=== PATIENT | male | born 1980 | race American Indian/Alaskan Native ===

== ENCOUNTER 2016-09-15 02:07 | Emergency (ER) | payer SELFPAY ==
[2016-09-15 05:08] LABS: Basophils % (Auto) 0.7 % (0.0-1.8); Eosinophils % (Auto) 2.5 % (0.0-4.3); Hematocrit 50.8 % (35.5-45.6); Hemoglobin 16.8 gm/dl (11.8-15.2); Mean Corpuscular HGB Conc 33 % (32-34); Mean Corpuscular Hemoglobin 31 pg (28-32); Mean Corpuscular Volume 93 fl (84-94); Platelet Count 365 K/mm3 (140-440); Red Blood Count 5.48 M/mm3 (3.65-5.03); Red Cell Distribution Width 14.8 % (13.2-15.2); White Blood Count 13.9 K/mm3 (4.5-11.0)
[2016-09-15 05:26] LABS: Anion Gap 19 mmol/L; BUN/Creatinine Ratio 16.36; Blood Urea Nitrogen 18 mg/dL (9-20); Calcium 9.2 mg/dL (8.4-10.2); Carbon Dioxide 23 mmol/L (22-30); Chloride 103.5 mmol/L (98-107); Glucose 90 mg/dL (75-100); Lipase 26 units/L (13-60); Sodium 141 mmol/L (137-145)
[2016-09-15 05:44] LABS: Bilirubin,Urine NEG (Negative); Blood,Urine NEG (Negative); Ketones,Urine 20 mg/dL (Negative); Leukocyte Esterase,Urine NEG (Negative); Mucus,Urine FEW /HPF; Nitrite,Urine NEG (Negative); Protein,Urine <15 mg/dL mg/dL (Negative); Urobilinogen,Urine < 2.0 mg/dL (<2.0)
[2016-09-15] MEDS ORDERED: NORCO 7.5/325 PO ONE (14:19)
[2016-09-15] MEDS ORDERED: XYLOCAINE 1% MPF 5 mL INFILTRATI ONE (14:20)
--- NOTE | 2016-09-15 14:26 | XRay Report ---
CHEST 2 VIEWS INDICATION: Cough. COMPARISON: None similar at this institution. FINDINGS: PA and lateral chest radiographs demonstrate normal cardiomediastinal silhouette. Clear lungs. Intact bones. CONCLUSION: No acute disease in the chest. Thank you for the opportunity to participate in this patient's care.
--- NOTE | 2016-09-15 16:29 | Emergency Department Report ---
Abscess Boil HPI - HPI Chief Complaint: Skin/Abscess/Foreign Body Stated Complaint: L EAR INFECTION/BUMP ON R EYE/ABSCESS Duration: 1 Week Location: Head (left earlobe and right eyebrow) Severity: Mild History: Yes Pain, Yes Purulent Drainage, No Fever, No Numbness, No Foreign Body , No Previous History HPI: 35 year old male presents to ED with left earlobe abscess and right eyebrow abscess x1week. Patient is stable, neurologically intact and in no acute distress. patient also states that he had 1 episode of hemotypsis 2 weeks ago but is unsure if it was from his chest or mouth. patient states he also has tooth pain for 2-3 weeks. Home Medications: Previous Rx's Medication Instructions Recorded Last Taken Type Cephalexin [Keflex] 500 mg PO Q12HR #14 cap 09/15/16 Unknown Rx Allergies/Adverse Reactions: Allergies Allergy/AdvReac Type Severity Reaction Status Date / Time shellfish derived Allergy Swelling Verified 09/15/16 03:41 ED Review of Systems ROS: Stated complaint: L EAR INFECTION/BUMP ON R EYE/ABSCESS Other details as noted in HPI Constitutional: denies: chills, fever Eyes: denies: eye pain, eye discharge, vision change ENT: ear pain, dental pain. denies: throat pain Respiratory: cough. denies: shortness of breath, SOB with exertion, SOB at rest , wheezing Cardiovascular: denies: chest pain, palpitations, dyspnea on exertion, orthopnea , edema, syncope Endocrine: no symptoms reported Gastrointestinal: denies: abdominal pain, nausea, diarrhea Genitourinary: denies: urgency, dysuria Musculoskeletal: denies: back pain, joint swelling, arthralgia Skin: denies: rash, lesions Neurological: denies: headache, weakness, paresthesias Psychiatric: denies: anxiety, depression Hematological/Lymphatic: denies: easy bleeding, easy bruising ED Past Medical Hx - Past Medical History Previous Medical History?: No - Surgical History Past Surgical History?: No - Social History Smoking Status: Current Every Day Smoker Substance Use Type: Alcohol, Cocaine, Marijuana - Medications Home Medications: Home Medications Medication Instructions Recorded Confirmed Last Taken Type Cephalexin [Keflex] 500 mg PO Q12HR #14 cap 09/15/16 Unknown Rx ED Abscess Boil Physical Exam - Exam General: Vital signs noted. No distress. Alert and acting appropriately. Size: 2 cm Exam: Yes Tenderness, Yes Fluctuance, Yes Normal Neurologic Exam, Yes Normal Circulation, No Surrounding Cellulites/Erythema, No Lymphangitis, No Crepitation , No Heart Murmur Exam: neurologically intact. alert and oriented x3. cardiovascular: regular rate and rhythm. Respiratory: normal sounds bilaterally. ENT: normal clear TM' s. normal throat exam. normal mouth/teeth exam, no abscess present. I & D Note - I & D Note I & D Note: 2 I&D procedures perfomed. One on left earlobe, one on right eyebrow abscess. Both areas prepped with betadine and injected with 5cc's of lidocaine for numbing. Moderate amount of purulent drainage obtained from both areas and patient tolerated well. bleeding well controlled from both areas/ abscesses. ED Course Vital Signs 09/15/16 03:41 Temperature 98.3 F Pulse Rate 78 Respiratory 20 Rate Blood Pressure 139/85 O2 Sat by Pulse 99 Oximetry Critical care attestation.: If time is entered above; I have spent that time in minutes in the direct care of this critically ill patient, excluding procedure time. ED Medical Decision Making - Lab Data Result diagrams: 09/15/16 04:30 09/15/16 04:30 Laboratory Results - last 24 hr 09/15/16 09/15/16 09/15/16 04:30 04:30 04:30 WBC 13.9 H RBC 5.48 H Hgb 16.8 H Hct 50.8 H MCV 93 MCH 31 MCHC 33 RDW 14.8 Plt Count 365 Lymph % (Auto) 20.8 [place] % (Auto) 9.4 H Eos % (Auto) 2.5 Baso % (Auto) 0.7 Lymph # 2.9 [place] # 1.3 H Eos # 0.4 Baso # 0.1 Seg Neutrophils % 66.6 Seg Neutrophils # 9.2 H Sodium 141 Potassium 4.0 Chloride 103.5 Carbon Dioxide 23 Anion Gap 19 BUN 18 Creatinine 1.1 Estimated GFR > 60 BUN/Creatinine Ratio 16.36 Glucose 90 Calcium 9.2 Lipase 26 Urine Color Yellow Urine Turbidity Clear Urine pH 6.0 Ur Specific [place] 1.026 Urine Protein <15 mg/dl Urine Glucose (UA) Neg Urine Ketones 20 Urine Blood Neg Urine Nitrite Neg Urine Bilirubin Neg Urine Urobilinogen < 2.0 Ur Leukocyte Esterase Neg Urine WBC (Auto) 1.0 Urine RBC (Auto) 3.0 U Epithel Cells (Auto) < 1.0 Urine Mucus Few Urine Yeast (Budding) Few - Radiology Data Radiology results: report reviewed CXR No acute disease in chest - Medical Decision Making 35 year old male tolerated I&D procedures well. patient will be placed on antibiotics and understands to return to ED within 2-3 days for recheck. patient has had no recent episodes of hemoptysis since 2 weeks ago and has normal CXR and stable labs. patient understands to follow up with PCP or return to ED if symptoms begin again. ED Disposition Clinical Impression: Abscess of earlobe Qualifiers: Laterality: left Qualified Code(s): H60.02 - Abscess of left external ear Disposition: DISCHARGED TO HOME OR SELFCARE Is pt being admited?: No Does the pt Need Aspirin: No Condition: Stable Instructions: Abscess (ED) Prescriptions: Cephalexin [Keflex] 500 mg PO Q12HR #14 cap Referrals: PRIMARY CARE, [Primary Care Provider] - 3-5 Days [facility] [Outside] - 3-5 Days [facility] [Outside] - 3-5 Days Forms: Work/School Release Form(ED)
[2016-09-15 17:02] VITALS: BP 129/88
== END 2016-09-15 17:01 | disposition home or self-care (01) ==
LOC: ED 02:07
DX: H60.02 Abscess of left external ear (principal); L02.01 Cutaneous abscess of face; F17.200 Nicotine dependence, unspecified, uncomplicated; F14.10 Cocaine abuse, uncomplicated; F12.10 Cannabis abuse, uncomplicated; Z91.013 Allergy to seafood
CPT/HCPCS: 36415; 71020; 80048; 81001; 83690; 85025